=== PATIENT | female | born 1985 | race Two or more races ===

== ENCOUNTER 2016-12-24 08:45 | Inpatient (IN) | payer OTHER ==
[~2016-12-24] VITALS: Ht 170.2 cm; Wt 58.7 kg
[2016-12-24] MEDS ORDERED: SODIUM CHLORIDE 0.9% 1,000 ML IV ONE (09:46)
[2016-12-24] MEDS ORDERED: SODIUM CHLORIDE 0.9% 1,000ML IVBOLUS ONE ×2 (10:00→10:30)
[2016-12-24 10:22] LABS: BLOOD UREA NITROGEN 11 mg/dL (7-18)
[2016-12-24] MEDS ORDERED: AZATHIOPRINE PO (10:26)
[2016-12-24 10:27] LABS: ASPARTATE AMINO TRANSFERASE 40 U/L (15-37)
[2016-12-24] MEDS ORDERED: CEFTRIAXONE PMX 1GM/50ML 50 ML ONE (10:28)
[2016-12-24] MEDS ORDERED: CEFTRIAXONE PMX 1GM/50ML 50 ML IVPB ONE (10:30)
[2016-12-24] MEDS ORDERED: AZITHROMYCIN 500 MG in SODIUM CHLORIDE 0.9% 250 ML IVPB ONE (10:30)
[2016-12-24] MEDS ORDERED: POTASSIUM CHLORIDE 20 MEQ in SODIUM CHLORIDE 0.9% 1,000 ML IV ONE (11:10)
[2016-12-24] MEDS ORDERED: SODIUM CHLORIDE FLUSH 10ML SYR IVF PRN (11:30)
[2016-12-24 12:59] VITALS: BP 92/57
[2016-12-24] MEDS ORDERED: MORPHINE SULFATE 4 MG/ML, 1ML IVPush PRN (14:00)
[2016-12-24] MEDS ORDERED: BISACODYL 10 MG SUPP PR PRN (14:00)
[2016-12-24] MEDS ORDERED: POLYETHYLENE GLYCOL 17 GM PACKET PO PRN (14:00)
[2016-12-24] MEDS ORDERED: ONDANSETRON 2MG/ML, 2ML IVP PRN (14:00)
[2016-12-24] MEDS: HEPARIN 5,000 UNITS/ML, 1ML SQ SCH ×2 (14:00→20:32)
[2016-12-24] MEDS ORDERED: ENALAPRILAT 1.25 MG/ML, 2ML IVPush PRN (14:00)
[2016-12-24 15:27] LABS: C-REACTIVE PROTEIN, QUANT 8.8 mg/dL (0.02-0.49)
[2016-12-24] MEDS: SODIUM CHLORIDE 0.9% 1,000 ML IV SCH (17:38)
[2016-12-24 17:41] VITALS: BP 92/57
[2016-12-24 18:57] VITALS: BP 97/63
[2016-12-24] MEDS: OXYcodone IR 5MG TABLET PO PRN (20:32)
[2016-12-25 01:47] VITALS: BP 97/57
[2016-12-25] MEDS: ACETAMINOPHEN 325 MG TABLET PO PRN ×2 (01:55→15:44)
[2016-12-25] MEDS: SODIUM CHLORIDE 0.9% 1,000 ML IV SCH (01:55)
[2016-12-25] MEDS: HEPARIN 5,000 UNITS/ML, 1ML SQ SCH ×3 (02:44→21:04)
[2016-12-25] MEDS: OXYcodone IR 5MG TABLET PO PRN (05:54)
[2016-12-25 06:34] LABS: ASPARTATE AMINO TRANSFERASE 46 U/L (15-37); BLOOD UREA NITROGEN 6 mg/dL (7-18)
[2016-12-25 07:49] VITALS: BP 93/52
[2016-12-25] MEDS: SENNA/DOCUSATE TABLET PO SCH (07:57)
[2016-12-25] MEDS: AZITHROMYCIN 500 MG in SODIUM CHLORIDE 0.9% 250 ML IV SCH (10:52)
[2016-12-25 11:27] LABS: DIFF TOTAL CELLS COUNTED 100 CELL DIFF
[2016-12-25 11:28] LABS: VERIFY COUNTS? YES
[2016-12-25 11:31] LABS: ANISOCYTOSIS 1+; HYPOCHROMIA 1+; MICROCYTOSIS 2+
[2016-12-25] MEDS: ERGOCALCIFEROL 50,000 UNIT CAPSULE PO SCH (11:51)
[2016-12-25] MEDS: AZATHIOPRINE 50 MG TABLET PO SCH (11:51)
[2016-12-25] MEDS: CEFTRIAXONE PMX 1GM/50ML 50 ML IV SCH ×2 (11:51→21:13)
[2016-12-25 13:39] VITALS: BP 106/67
[2016-12-25] MEDS: FERROUS GLUCONATE 324 MG TABLET PO SCH (15:44)
[2016-12-25 18:47] VITALS: BP 106/68
[2016-12-25 23:07] LABS: OCCBLD OBC PASS
[2016-12-26 01:38] VITALS: BP 103/66
[2016-12-26] MEDS: HEPARIN 5,000 UNITS/ML, 1ML SQ SCH ×3 (06:00→20:18)
[2016-12-26 07:51] VITALS: BP 103/66
[2016-12-26] MEDS: AZATHIOPRINE 50 MG TABLET PO SCH (08:55)
[2016-12-26] MEDS: FERROUS GLUCONATE 324 MG TABLET PO SCH ×2 (08:56→16:52)
[2016-12-26] MEDS: CEFTRIAXONE PMX 1GM/50ML 50 ML IV SCH ×2 (08:56→20:26)
[2016-12-26] MEDS: SENNA/DOCUSATE TABLET PO SCH (08:56)
[2016-12-26] MEDS: AZITHROMYCIN 500 MG in SODIUM CHLORIDE 0.9% 250 ML IV SCH (10:49)
[2016-12-26 13:49] VITALS: BP 95/65
[2016-12-26 19:23] VITALS: BP 101/65
[2016-12-26] MEDS: OXYcodone IR 5MG TABLET PO PRN (20:24)
[2016-12-27 02:50] VITALS: BP 95/61
[2016-12-27] MEDS: HEPARIN 5,000 UNITS/ML, 1ML SQ SCH ×3 (03:14→22:00)
[2016-12-27] MEDS: SENNA/DOCUSATE TABLET PO SCH (09:00)
[2016-12-27] MEDS: ACETAMINOPHEN 325 MG TABLET PO PRN (09:01)
[2016-12-27] MEDS: OXYcodone IR 5MG TABLET PO PRN (09:01)
[2016-12-27] MEDS: FERROUS GLUCONATE 324 MG TABLET PO SCH ×2 (09:02→17:33)
[2016-12-27] MEDS: AZATHIOPRINE 50 MG TABLET PO SCH (09:02)
[2016-12-27] MEDS: CEFTRIAXONE PMX 1GM/50ML 50 ML IV SCH ×2 (09:02→21:28)
[2016-12-27 09:05] VITALS: BP 100/64
[2016-12-27] MEDS: AZITHROMYCIN 500 MG in SODIUM CHLORIDE 0.9% 250 ML IV SCH (11:05)
[2016-12-27 14:00] VITALS: BP 101/67
[2016-12-27 16:32] VITALS: BP 99/61
[2016-12-27 19:24] VITALS: BP 110/74
[2016-12-28 02:19] VITALS: BP 97/62
[2016-12-28] MEDS: OXYcodone IR 5MG TABLET PO PRN ×3 (03:13→18:05)
[2016-12-28 05:55] LABS: BLOOD UREA NITROGEN 5 mg/dL (7-18)
[2016-12-28] MEDS: HEPARIN 5,000 UNITS/ML, 1ML SQ SCH ×3 (06:00→21:19)
[2016-12-28 06:25] LABS: DIFF TOTAL CELLS COUNTED 100 CELL DIFF
[2016-12-28 06:28] LABS: VERIFY COUNTS? YES
[2016-12-28 06:29] LABS: ANISOCYTOSIS 1+; HYPOCHROMIA 1+; MICROCYTOSIS 1+; POIKILOCYTOSIS 1+
[2016-12-28] MEDS: AZATHIOPRINE 50 MG TABLET PO SCH (08:21)
[2016-12-28] MEDS: FERROUS GLUCONATE 324 MG TABLET PO SCH ×2 (08:21→18:05)
[2016-12-28] MEDS: SENNA/DOCUSATE TABLET PO SCH (08:22)
[2016-12-28 08:24] VITALS: BP 149/73
[2016-12-28] MEDS: CEFTRIAXONE PMX 1GM/50ML 50 ML IV SCH ×2 (09:33→21:31)
[2016-12-28 09:34] LABS: IS PT STATUS REG ER OR PRE ER? NO
[2016-12-28] MEDS: AZITHROMYCIN 500 MG in SODIUM CHLORIDE 0.9% 250 ML IV SCH (12:22)
[2016-12-28 12:56] VITALS: BP 104/70
[2016-12-28 19:57] VITALS: BP 105/65
[2016-12-29 03:16] VITALS: BP 101/59
[2016-12-29] MEDS: HEPARIN 5,000 UNITS/ML, 1ML SQ SCH ×4 (06:16→22:00)
[2016-12-29 07:20] VITALS: BP 102/65
[2016-12-29] MEDS: FERROUS GLUCONATE 324 MG TABLET PO SCH ×2 (08:50→16:48)
[2016-12-29] MEDS: AZATHIOPRINE 50 MG TABLET PO SCH (08:51)
[2016-12-29] MEDS: SENNA/DOCUSATE TABLET PO SCH (08:51)
[2016-12-29] MEDS: CEFTRIAXONE PMX 1GM/50ML 50 ML IV SCH ×2 (10:02→21:40)
[2016-12-29 12:50] VITALS: BP 102/68
[2016-12-29] MEDS: AZITHROMYCIN 500 MG in SODIUM CHLORIDE 0.9% 250 ML IV SCH (13:23)
[2016-12-29 17:25] LABS: PATH.CAST-FLAG NOT PRESENT; SPERM-FLAG NOT PRESENT; SRC-FLAG NOT PRESENT; XTAL-FLAG NOT PRESENT; YLC-FLAG NOT PRESENT
[2016-12-29 19:12] VITALS: BP 139/86
[2016-12-29 19:59] VITALS: BP 101/61
[2016-12-29] MEDS: SODIUM CHLORIDE 0.9% 1,000 ML IV SCH (20:37)
[2016-12-29] MEDS: OXYcodone IR 5MG TABLET PO PRN (21:49)
[2016-12-30 03:02] VITALS: BP 112/70
[2016-12-30] MEDS: SODIUM CHLORIDE 0.9% 1,000 ML IV SCH ×2 (04:00→13:16)
[2016-12-30] MEDS: HEPARIN 5,000 UNITS/ML, 1ML SQ SCH ×3 (06:00→21:15)
[2016-12-30 07:28] VITALS: BP 108/72
[2016-12-30] MEDS: SENNA/DOCUSATE TABLET PO SCH (08:28)
[2016-12-30] MEDS: FERROUS GLUCONATE 324 MG TABLET PO SCH ×2 (08:28→16:32)
[2016-12-30] MEDS: AZATHIOPRINE 50 MG TABLET PO SCH (08:28)
[2016-12-30] MEDS: CEFTRIAXONE PMX 1GM/50ML 50 ML IV SCH ×2 (10:34→21:15)
[2016-12-30] MEDS: AZITHROMYCIN 500 MG in SODIUM CHLORIDE 0.9% 250 ML IV SCH (13:16)
[2016-12-30 14:34] VITALS: BP 104/67
[2016-12-30] MEDS: OXYcodone IR 5MG TABLET PO PRN (16:32)
[2016-12-30 19:38] VITALS: BP 109/73
[2016-12-31] MEDS: OXYcodone IR 5MG TABLET PO PRN ×2 (01:43→22:12)
[2016-12-31] MEDS: SODIUM CHLORIDE 0.9% 1,000 ML IV SCH ×2 (02:00→10:29)
[2016-12-31 02:01] VITALS: BP 110/72
[2016-12-31] MEDS: HEPARIN 5,000 UNITS/ML, 1ML SQ SCH ×3 (06:42→22:00)
[2016-12-31 07:30] VITALS: BP 110/73
[2016-12-31] MEDS: CEFTRIAXONE PMX 1GM/50ML 50 ML IV SCH ×2 (09:12→22:12)
[2016-12-31] MEDS: FERROUS GLUCONATE 324 MG TABLET PO SCH ×2 (09:12→18:21)
[2016-12-31] MEDS: AZATHIOPRINE 50 MG TABLET PO SCH (09:12)
[2016-12-31] MEDS: SENNA/DOCUSATE TABLET PO SCH (09:13)
[2016-12-31] MEDS: AZITHROMYCIN 500 MG in SODIUM CHLORIDE 0.9% 250 ML IV SCH (13:07)
[2016-12-31 13:44] VITALS: BP 110/74
[2016-12-31 14:06] LABS: ANA DIRECT Positive (Negative); COMPLEMENT C3 29 mg/dL (82-167); COMPLEMENT C4 2 mg/dL (14-44); INTERMYOFIBRILLAR AB Negative (Neg:<1:20); MITOCHONDRIAL (M2) AB 29.7 Units (0.0-20.0); PARIETAL CELL AB 25.7 Units (0.0-20.0); RA LATEX TURBIDITY 36.8 IU/mL (0.0-13.9); SARCOLEMMA AB Negative (Neg:<1:20); SJOGREN'S SS-A AB >8.0 AI (0.0-0.9); STRIATION AB Negative (Neg:<1:40); THYROID PEROXIDASE (TPO) AB 26 IU/mL (0-34)
[2016-12-31] MEDS ORDERED: OMNIPAQUE 350 MG/ML, 75ML BOTTLE ONE (16:35)
[2016-12-31 19:45] VITALS: BP 114/75
[2017-01-01] MEDS: SODIUM CHLORIDE 0.9% 1,000 ML IV SCH ×2 (02:04→11:23)
[2017-01-01 02:34] VITALS: BP 100/68
[2017-01-01] MEDS: HEPARIN 5,000 UNITS/ML, 1ML SQ SCH ×2 (05:45→13:16)
[2017-01-01 07:05] VITALS: BP 107/67
[2017-01-01] MEDS: SENNA/DOCUSATE TABLET PO SCH (09:12)
[2017-01-01] MEDS: OXYcodone IR 5MG TABLET PO PRN (09:12)
[2017-01-01] MEDS: CEFTRIAXONE PMX 1GM/50ML 50 ML IV SCH (09:12)
[2017-01-01] MEDS: AZATHIOPRINE 50 MG TABLET PO SCH (09:12)
[2017-01-01] MEDS: FERROUS GLUCONATE 324 MG TABLET PO SCH (09:13)
[2017-01-01] MEDS: ERGOCALCIFEROL 50,000 UNIT CAPSULE PO SCH (11:23)
[2017-01-01 12:33] VITALS: BP 110/70
[2017-01-01] MEDS: AZITHROMYCIN 500 MG in SODIUM CHLORIDE 0.9% 250 ML IV SCH (13:16)
[2017-01-01] MEDS ORDERED: PREDNISOLONE ACETATE OP (13:47)
[2017-01-01] MEDS ORDERED: SENN1TAB7 PO (13:47)
[2017-01-01] MEDS ORDERED: FERR325T16 PO (13:47)
[2017-01-01] MEDS ORDERED: ERGO500017 PO (13:47)
[2017-01-01] MEDS ORDERED: AZIT500T4 PO (13:47)
[2017-01-01] MEDS ORDERED: OXYC5TAB3 PO (13:47)
[2017-01-01] MEDS ORDERED: PRED20TA PO (13:47)
[2017-01-01] MEDS ORDERED: CEFD300C2 PO (13:47)
[2017-01-01 14:07] LABS: UR ALBUMIN 14.6 % (.); UR ALPHA-1-GLOBULIN 3.4 % (.); UR ALPHA-2-GLOBULIN 16.5 % (.); UR BETA GLOBULIN 29.2 % (.); UR GAMMA GLOBULIN 36.2 % (.); UR M-SPIKE % Not Observed % (Not Observed)
[2017-01-01] MEDS ORDERED: OXYC5CAP4 PO (15:57)
== END 2017-01-01 16:32 | disposition home or self-care (01) | DRG 177 ==
LOC: ED 10:41 → EDIP 11:10 → 3NE 13:06 → DCLOUNGE 01-01 15:55
PROVIDERS: ADMIT Hospitalist; ATTEND Hospitalist
PROC: 0T9B70Z Drainage of Bladder with Drainage Device, Via Natural or Artificial Opening (ICD-10-PCS; principal; 2016-12-24)
DX: J15.6 Pneumonia due to other Gram-negative bacteria (principal); E43 Unspecified severe protein-calorie malnutrition; D50.9 Iron deficiency anemia, unspecified; E55.9 Vitamin D deficiency, unspecified; H54.41 Blindness, right eye, normal vision left eye; R09.1 Pleurisy; M32.9 Systemic lupus erythematosus, unspecified; Z79.899 Other long term (current) drug therapy; Z68.20 Body mass index [BMI] 20.0-20.9, adult
CPT/HCPCS: 36415; 71010; 71020; 71260; 76700; 80048; 80053; 80061; 81001; 82272; 82306; 82533; 82570; 82607; 82728; 82962; 83036; 83516; 83540; 83550; 83605; 83690; 83735; 84145; 84156; 84166; 84439; 84443; 84466; 84484; 84703; 85025; 85651; 86038; 86140; 86160; 86225; 86235; 86255; 86256; 86376; 86431; 87040; 87086; 93005; 96361; 96365; 96375; J0456; J0696; J1644; J3480; J7500; Q9967; J7030; J7050; J7512

== ENCOUNTER → 2017-01-21 | Outpatient (CLI) | payer OTHER ==
[~2017-01-21] MED LIST: AZATHIOPRINE PO; AZIT500T77 PO; CEFD300C37 PO; ERGO500017 PO; FERR325T16 PO; OXYC5CAP4 PO; OXYC5TAB3 PO; PRED20TA PO; PREDNISOLONE ACETATE OP; SENN1TAB7 PO
== END | disposition home or self-care (01) ==
LOC: RAD 16:04
PROVIDERS: ATTEND Nurse Practitioner Family
DX: J13 Pneumonia due to Streptococcus pneumoniae (principal); M32.9 Systemic lupus erythematosus, unspecified
CPT/HCPCS: 71020

== ENCOUNTER → 2017-09-24 | Outpatient (CLI) | payer OTHER ==
[~2017-09-24] MED LIST changes: +AZIT500T5 PO; -AZIT500T77 PO; +OXYC5CAP2 PO; -OXYC5CAP4 PO
== END | disposition home or self-care (01) ==
LOC: CFH 13:29
PROVIDERS: ATTEND Nurse Practitioner Family
DX: N63.10 Unspecified lump in the right breast, unspecified quadrant (principal); R92.0 Mammographic microcalcification found on diagnostic imaging of breast
CPT/HCPCS: 77066

== ENCOUNTER 2019-03-31 15:22 | Outpatient (CLI) | payer OTHER | END 2019-03-31 23:59 | disposition home or self-care (01) | LOC: LAB 15:22 | PROVIDERS: ATTEND Internal Medicine | DX: D72.819 Decreased white blood cell count, unspecified (principal); M32.10 Systemic lupus erythematosus, organ or system involvement unspecified; R76.8 Other specified abnormal immunological findings in serum; Z79.899 Other long term (current) drug therapy | CPT/HCPCS: 36415; 80053; 81001; 82570; 84156; 85025; 85651; 86140; 86160; 87086 ==

== ENCOUNTER 2019-07-27 07:21 | Outpatient (CLI) | payer OTHER ==
[~2019-07-27 07:21] MED LIST changes: +AZIT500T10 PO; -AZIT500T5 PO; +SENN-177 PO; -SENN1TAB7 PO
[2019-07-27 07:42] LABS: BASOPHILS % (AUTO) 0 % (0-1); EOSINOPHILS # (AUTO) 0.04 x10^3/uL (0-0.4); EOSINOPHILS % (AUTO) 1 % (1-7); LYMPHOCYTES # (AUTO) 0.39 x10^3/uL (1-3.4); LYMPHOCYTES % (AUTO) 9 % (22-44); MD NO; MEAN CORPUSCULAR HEMOGLOBIN 28.2 pg (27.0-34.8); MEAN CORPUSCULAR HGB CONC 32.5 g/dL (32.4-35.8); MEAN CORPUSCULAR VOLUME 86.7 fL (80-100); MEAN PLATELET VOLUME 6.7 fL (7.4-10.4); MONOCYTES # (AUTO) 0.09 x10^3/uL (0.2-0.8); MONOCYTES % (AUTO) 2 % (2-9); NEUTROPHILS # (AUTO) 3.64 x10^3/uL (1.8-6.8); NEUTROPHILS % (AUTO) 87 % (42-75); PLATELET COUNT 424 x10^3/uL (130-400); RED BLOOD COUNT 3.97 x10^6/uL (3.82-5.3)
[2019-07-27 07:54] LABS: ALANINE AMINOTRANSFERASE 33 U/L (12-78); ALBUMIN 2.2 g/dL (3.4-5.0); ANION GAP 6 mmol/L (5-15); CALCIUM 7.6 mg/dL (8.5-10.1); CHLORIDE 107 mmol/L (98-107)
[2019-07-27 07:56] LABS: ALKALINE PHOSPHATASE 298 U/L (45-117); BILIRUBIN,TOTAL 0.5 mg/dL (0.2-1.0); CREATININE 0.33 mg/dL (0.55-1.02); TOTAL PROTEIN 7.6 g/dL (6.4-8.2)
[2019-07-27 08:09] LABS: MICROSCOPIC NOT IND
[2019-07-27 08:10] LABS: CULTURE INDICATED? NO
[2019-07-27 08:21] LABS: CREATININE,URINE RANDOM 27.5 mg/dL
== END 2019-07-27 23:59 | disposition home or self-care (01) ==
LOC: LAB 07:21
PROVIDERS: ATTEND Internal Medicine
DX: M32.10 Systemic lupus erythematosus, organ or system involvement unspecified (principal); R76.0 Raised antibody titer; Z79.899 Other long term (current) drug therapy
CPT/HCPCS: 36415; 80053; 81003; 82570; 84156; 85025; 86160

== ENCOUNTER 2019-08-26 07:19 | Outpatient (CLI) | payer OTHER ==
[2019-08-26 08:21] LABS: MICROSCOPIC NOT IND
[2019-08-26 08:22] LABS: CULTURE INDICATED? NO
[2019-08-26 08:38] LABS: BASOPHILS # (AUTO) 0.01 x10^3/uL (0-0.1); BASOPHILS % (AUTO) 0 % (0-1); EOSINOPHILS # (AUTO) 0.02 x10^3/uL (0-0.4); EOSINOPHILS % (AUTO) 0 % (1-7); LYMPHOCYTES # (AUTO) 0.43 x10^3/uL (1-3.4); LYMPHOCYTES % (AUTO) 9 % (22-44); MD NO; MEAN CORPUSCULAR HGB CONC 33.4 g/dL (32.4-35.8); MEAN CORPUSCULAR VOLUME 86.7 fL (80-100); MEAN PLATELET VOLUME 7.6 fL (7.4-10.4); MONOCYTES # (AUTO) 0.08 x10^3/uL (0.2-0.8); MONOCYTES % (AUTO) 2 % (2-9); NEUTROPHILS # (AUTO) 4.13 x10^3/uL (1.8-6.8); NEUTROPHILS % (AUTO) 89 % (42-75); PLATELET COUNT 384 x10^3/uL (130-400); RED CELL DISTRIBUTION WIDTH 16.7 % (9.6-15.2)
[2019-08-26 08:51] LABS: ALANINE AMINOTRANSFERASE 26 U/L (12-78); ANION GAP 8 mmol/L (5-15); CHLORIDE 107 mmol/L (98-107)
[2019-08-26 08:53] LABS: ALKALINE PHOSPHATASE 611 U/L (45-117); BILIRUBIN,TOTAL 0.8 mg/dL (0.2-1.0)
== END 2019-08-26 23:59 | disposition home or self-care (01) ==
LOC: LAB 07:19
PROVIDERS: ATTEND Internal Medicine
DX: O09.891 Supervision of other high risk pregnancies, first trimester (principal); M32.10 Systemic lupus erythematosus, organ or system involvement unspecified; R76.0 Raised antibody titer; Z3A.00 Weeks of gestation of pregnancy not specified
CPT/HCPCS: 36415; 80053; 81003; 82239; 82570; 82950; 84156; 85025; 86160; 86780